=== PATIENT | female | born 1985 | race American Indian/Alaskan Native ===

== ENCOUNTER 2017-05-08 16:40 | Emergency (ER) | payer MEDICAID ==
--- NOTE | 2017-05-08 21:47 | Emergency Department Report ---
ED Abdominal Pain HPI - General Chief Complaint: Abdominal Pain Stated Complaint: ABDOMINAL PAIN Time Seen by Provider: 05/08/17 21:15 Source: patient Mode of arrival: Ambulatory Limitations: No Limitations - History of Present Illness Initial Comments: 31 yo female who comes in today due to abdominal pain times the last two days. She describes the pain as suprapubic, 6/10, and she also has an incomplete feeling of voiding. The patient has a hx of asthma, and is complain of some chest congestion, tightness, and cough. Vitals unremarkable. Onset/Timin -: days(s) Location: suprapubic Radiation: none Migration to: no migration Severity: moderate Severity scale (0 -10): 5 Quality: cramping, aching Consistency: constant Improves With: nothing Worsens With: other (urination ) Associated Symptoms: denies other symptoms Treatments Prior to Arrival: other (none) - Related Data LMP (females 10-50): last week Previous Rx's Medication Instructions Recorded Last Taken Type Diphenoxylate HCl/Atropine 1 each PO QID PRN #10 tablet 05/07/15 Unknown Rx [Lomotil 2.5-0.025 mg Tablet] Ondansetron [Zofran Odt] 4 mg PO Q8HR #20 tab.rapdis 05/07/15 Unknown Rx Ciprofloxacin HCl [Cipro] 500 mg PO BID #20 tablet 05/09/17 Unknown Rx Allergies Allergy/AdvReac Type Severity Reaction Status Date / Time No Known Allergies Allergy Verified 05/07/15 00:27 ED Review of Systems ROS: Stated complaint: ABDOMINAL PAIN Other details as noted in HPI Constitutional: denies: chills, fever Eyes: denies: eye pain, eye discharge, vision change ENT: denies: ear pain, throat pain Respiratory: shortness of breath, other (chest tightness, cough, congestion ) Cardiovascular: denies: chest pain, palpitations Endocrine: no symptoms reported Genitourinary: as per HPI, urgency Musculoskeletal: back pain (chronic ) Skin: denies: rash, lesions Neurological: denies: headache, weakness, paresthesias Psychiatric: denies: anxiety, depression Hematological/Lymphatic: denies: easy bleeding, easy bruising ED Past Medical Hx - Past Medical History Previous Medical History?: Yes Hx Psychiatric Treatment: Yes (Anxiety) Hx Asthma: Yes Additional medical history: Back pain - Surgical History Past Surgical History?: No - Social History Smoking Status: Former Smoker Substance Use Type: Alcohol, Prescribed - Medications Home Medications: Home Medications Medication Instructions Recorded Confirmed Last Taken Type Diphenoxylate HCl/Atropine 1 each PO QID PRN #10 tablet 05/07/15 Unknown Rx [Lomotil 2.5-0.025 mg Tablet] Ondansetron [Zofran Odt] 4 mg PO Q8HR #20 tab.rapdis 05/07/15 Unknown Rx Ciprofloxacin HCl [Cipro] 500 mg PO BID #20 tablet 05/09/17 Unknown Rx ED Physical Exam - General Limitations: No Limitations General appearance: alert, in no apparent distress - Head Head exam: Present: atraumatic, normocephalic - Respiratory Respiratory exam: Present: normal lung sounds bilaterally. Absent: respiratory distress - Cardiovascular Cardiovascular Exam: Present: regular rate, normal rhythm. Absent: systolic murmur, diastolic murmur, rubs, gallop - GI/Abdominal GI/Abdominal exam: Present: tenderness (suprapubic area ), normal bowel sounds - Rectal Rectal exam: Present: deferred - Back Exam Back exam: Present: other (lumbosacral tenderness-hx of chronic back pain ) - Neurological Exam Neurological exam: Present: oriented X3 - Psychiatric Psychiatric exam: Present: normal affect, normal mood - Skin Skin exam: Present: warm, dry, intact, normal color. Absent: rash ED Course Vital Signs 05/08/17 05/08/17 05/08/17 18:09 21:58 22:17 Temperature 98.7 F 98.5 F Pulse Rate 84 78 Pulse Rate [ 77 Anterior Bilateral Throughout] Respiratory 18 16 Rate Respiratory 17 Rate [Anterior Bilateral Throughout] Blood Pressure 101/65 Blood Pressure 112/66 [Left] O2 Sat by Pulse 100 99 Oximetry Critical care attestation.: If time is entered above; I have spent that time in minutes in the direct care of this critically ill patient, excluding procedure time. ED Disposition Clinical Impression: UTI (urinary tract infection) Disposition: DC-01 TO HOME OR SELFCARE Is pt being admited?: No Does the pt Need Aspirin: No Condition: Stable Instructions: Abdominal Pain (ED), Urinary Tract Infection in Women (ED) Additional Instructions: Take medicine as prescribed until completed. Prescriptions: Ciprofloxacin HCl [Cipro] 500 mg PO BID #20 tablet Referrals: PRIMARY CARE, [Primary Care Provider] - 3-5 Days Time of Disposition: 00:31
[2017-05-08] MEDS ORDERED: DUONEB *Not for PRN Use IH ONE (21:52)
[2017-05-08 21:59] VITALS: BP 112/66
[2017-05-09 00:12] LABS: Bacteria,Urine 4+ /HPF (Negative); Bilirubin,Urine NEG (Negative); Blood,Urine SM (Negative); Ketones,Urine NEG (Negative); Leukocyte Esterase,Urine LG (Negative); Mucus,Urine FEW /HPF; Nitrite,Urine POS (Negative)
[2017-05-09 00:19] LABS: WBC,Urine > 182.0 /HPF (0.0-6.0)
[2017-05-09] MEDS ORDERED: ROCEPHIN IM ONE (00:24)
[2017-05-09] MEDS ORDERED: XYLOCAINE 1% MPF 5 mL INFILTRATI ONE (00:24)
[2017-05-09] MEDS ORDERED: TORADOL IM ONE (00:25)
[2017-05-09] MEDS ORDERED: TORADOL ONE (00:28)
[2017-05-09] MEDS ORDERED: ROCEPHIN ONE (00:28)
[2017-05-09] MEDS ORDERED: XYLOCAINE 1% MPF 5 mL ONE (00:28)
[2017-05-09] MEDS ORDERED: PEPCID PO ONE (01:58)
[2017-05-09] MEDS ORDERED: BENADRYL IM ONE (01:58)
[2017-05-09] MEDS ORDERED: BENADRYL PO ONE ×2 (02:44→02:45)
[2017-05-09] MEDS ORDERED: BENADRYL ONE ×2 (02:51→02:52)
[2017-05-09] MEDS ORDERED: PEPCID ONE (02:52)
== END 2017-05-09 04:05 | disposition home or self-care (01) ==
LOC: ED 16:40
DX: N39.0 Urinary tract infection, site not specified (principal); J45.909 Unspecified asthma, uncomplicated
CPT/HCPCS: 81001; 81025; 94640; 96372; 99283; J0696; J1885

== ENCOUNTER 2017-05-18 07:34 | Outpatient (CLI) | payer MEDICAID ==
--- NOTE | 2017-05-18 10:28 | Magnetic Resonance Report ---
MRI LUMBAR SPINE WITHOUT CONTRAST INDICATION: Radiculopathy, lumbosacral region. COMPARISON: None similar at this institution. FINDINGS: Noncontrast axial and sagittal T1 and T2-weighted MRI of the lumbar spine demonstrates normal vertebral body stature, alignment and marrow signal. Normal disc heights and signal as well. No significant disc bulge or spinal stenosis. Normal conus medullaris. Normal paraspinal soft tissues. CONCLUSION: Unremarkable lumbar spine MRI, as described. Thank you for the opportunity to participate in this patient's care.
== END 2017-05-18 07:35 | disposition home or self-care (01) ==
LOC: MRI 07:34
PROVIDERS: ATTEND Emergency Medicine
DX: M54.17 Radiculopathy, lumbosacral region (principal)
CPT/HCPCS: 72148

== ENCOUNTER 2018-04-19 22:53 | Emergency (ER) | payer MEDICAID ==
[2018-04-20] MEDS ORDERED: MOTRIN PO ONE (00:35)
--- NOTE | 2018-04-20 01:12 | XRay Report ---
FINAL REPORT PROCEDURE: XR HAND 2V LT TECHNIQUE: LEFT hand radiographs, AP and lateral views. CPT 53107-WT HISTORY: left thumb pain COMPARISON: No prior studies are available for comparison. FINDINGS: Fracture (s) and/or Dislocation(s): None . Alignment: Normal . Joint space(s): Normal . Soft tissues: Normal . Bone mineralization: Normal . Foreign bodies: None . IMPRESSION: Normal Examination .
[2018-04-20 01:13] LABS: Bacteria,Urine 1+ /HPF (Negative); Bilirubin,Urine NEG (Negative); Blood,Urine NEG (Negative); Color,Urine Yellow (Yellow); Mucus,Urine FEW /HPF
[2018-04-20 01:17] LABS: HCG Qualitative,Urine Negative (Negative)
--- NOTE | 2018-04-20 01:33 | Emergency Department Report ---
ED Upper Extremity Inj HPI - General Chief Complaint: Extremity Injury, Upper Stated Complaint: LT THUMB PAIN Time Seen by Provider: 04/20/18 01:05 Source: patient Mode of arrival: Ambulatory Limitations: No Limitations - History of Present Illness Initial Comments: This is a 32-year-old female nontoxic, well nourished in appearance, no acute signs of distress presents to the ED with c/o of left thumb pain 2 days. She also is complaining about dark colored urine with foul odor. Patient denies any vaginal discharge or vaginal bleeding. Patient denies any other urinary symptoms. Patient states she does have slight dysuria. She denies any back pain. Patient stated that 2 days ago she jammed her left thumb. Patient denies any other trauma. Patient denies any numbness, tingling, fever, chills, nausea, vomiting, chest pain, shortness of breath, headache, stiff neck. Patient denies any joint swelling or joint redness. Patient staetd She has some decreased range of motion due to pain. Patient denies any allergies or significant past medical history. MD Complaint: Injury to:: left, finger -: days(s) (2) Other Extremity Injury: Fingers: Left Other Injuries: none Severity scale (0 -10): 8 Improves With: immobilization Worsens With: movement of extremity Context: crush Associated Symptoms: denies other symptoms. denies: weakness, numbness, neck pain, suspects foreign body, nausea/vomiting, heard/felt popping sensat - Related Data Previous Rx's Medication Instructions Recorded Last Taken Type Diphenoxylate HCl/Atropine 1 each PO QID PRN #10 tablet 05/07/15 Unknown Rx [Lomotil 2.5-0.025 mg Tablet] Ondansetron [Zofran Odt] 4 mg PO Q8HR #20 tab.rapdis 05/07/15 Unknown Rx Ciprofloxacin HCl [Cipro] 500 mg PO BID #20 tablet 05/09/17 Unknown Rx Ibuprofen [Motrin] 600 mg PO Q8H PRN #20 tablet 04/20/18 Unknown Rx Sulfamethoxazole/Trimethoprim 1 each PO BID #14 tablet 04/20/18 Unknown Rx [Bactrim DS TAB] Allergies Allergy/AdvReac Type Severity Reaction Status Date / Time No Known Allergies Allergy Verified 05/07/15 00:27 ED Review of Systems ROS: Stated complaint: LT THUMB PAIN Other details as noted in HPI Constitutional: denies: chills, fever Eyes: denies: eye pain, eye discharge, vision change ENT: denies: ear pain, throat pain Respiratory: denies: cough, shortness of breath, wheezing Cardiovascular: denies: chest pain, palpitations Endocrine: no symptoms reported Gastrointestinal: denies: abdominal pain, nausea, diarrhea Genitourinary: dysuria. denies: urgency, discharge Musculoskeletal: denies: back pain, joint swelling, arthralgia Skin: denies: rash, lesions Neurological: denies: headache, weakness, paresthesias Psychiatric: denies: anxiety, depression Hematological/Lymphatic: denies: easy bleeding, easy bruising ED Past Medical Hx - Past Medical History Hx Psychiatric Treatment: Yes (Anxiety) Hx Asthma: Yes Additional medical history: Back pain - Surgical History Additional Surgical History: Bilateral Breast Reduction - Social History Smoking Status: Never Smoker Substance Use Type: None - Medications Home Medications: Home Medications Medication Instructions Recorded Confirmed Last Taken Type Diphenoxylate HCl/Atropine 1 each PO QID PRN #10 tablet 05/07/15 Unknown Rx [Lomotil 2.5-0.025 mg Tablet] Ondansetron [Zofran Odt] 4 mg PO Q8HR #20 tab.rapdis 05/07/15 Unknown Rx Ciprofloxacin HCl [Cipro] 500 mg PO BID #20 tablet 05/09/17 Unknown Rx Ibuprofen [Motrin] 600 mg PO Q8H PRN #20 tablet 04/20/18 Unknown Rx Sulfamethoxazole/Trimethoprim 1 each PO BID #14 tablet 04/20/18 Unknown Rx [Bactrim DS TAB] ED Physical Exam - General Limitations: No Limitations General appearance: alert, in no apparent distress - Head Head exam: Present: atraumatic, normocephalic - Eye Eye exam: Present: normal appearance Pupils: Present: normal accommodation - ENT ENT exam: Present: normal exam, mucous membranes moist - Neck Neck exam: Present: normal inspection - Respiratory Respiratory exam: Present: normal lung sounds bilaterally. Absent: respiratory distress, wheezes, rales, rhonchi, stridor, chest wall tenderness, accessory muscle use, decreased breath sounds, prolonged expiratory - Cardiovascular Cardiovascular Exam: Present: regular rate, normal rhythm, normal heart sounds. Absent: systolic murmur, diastolic murmur, rubs, gallop - GI/Abdominal GI/Abdominal exam: Present: soft, normal bowel sounds - Extremities Exam Extremities exam: Present: normal inspection, full ROM, tenderness, normal capillary refill. Absent: joint swelling - Expanded Upper Extremity Exam Left Hand Wrist exam: Present: normal inspection, full ROM, tenderness. Absent: swelling, abrasion, laceration, ecchymosis, deformity, crepidus, dislocation, erythema, amputation, nail avulsion, subungual hematoma Hand L/R Back: 1 - pain here Neuro motor exam: Present: wrist extension intact, thumb opposition intact, thumb IP flexion intact, thumb adduction intact, fingers 2-5 abduction intact Neurosensory exam: Present: 2-point discrimination, radial nerve intact, ulnar nerve intact, median nerve intact Vascular: Present: vascular compromise, normal capillary refill - Back Exam Back exam: Present: normal inspection, full ROM. Absent: tenderness, CVA tenderness (R), CVA tenderness (L), muscle spasm, paraspinal tenderness, vertebral tenderness, rash noted - Neurological Exam Neurological exam: Present: alert, oriented X3, normal gait - Psychiatric Psychiatric exam: Present: normal affect, normal mood - Skin Skin exam: Present: warm, dry, intact, normal color. Absent: rash ED Course Vital Signs 04/19/18 23:56 Temperature 99.4 F Pulse Rate 69 Respiratory 16 Rate Blood Pressure 133/77 O2 Sat by Pulse 99 Oximetry - Reevaluation(s) Reevaluation #1: 04/20/18 01:34 Patient is speaking in full sentences with no signs of distress noted. ED Medical Decision Making - Medical Decision Making This is a 32-year-old female that presents with left thumb strain and UTI. Patient is stable and was examined by me. Neurovascular intact. X-ray has been obtained and dictated by the radiologist. Patient is notified of the x- ray report with noted by the patient. Patient does have normal gait with no tenderness and no joint swelling. No ecchymosis. no joint redness or swelling. Not warm to touch. No signs of cellulites present. Patient was instructed to RICE therapy. Patient is discharged with Motrin. At time of discharge, the patient does not seem toxic or ill in appearance. No acute signs of distress noted. Patient agrees to discharge treatment plan of care. No further questions noted by the patient. Critical care attestation.: If time is entered above; I have spent that time in minutes in the direct care of this critically ill patient, excluding procedure time. ED Disposition Clinical Impression: Strain of left thumb UTI (urinary tract infection) Qualifiers: Urinary tract infection type: site unspecified Hematuria presence: without hematuria Qualified Code(s): N39.0 - Urinary tract infection, site not specified Disposition: DC- TO HOME OR SELFCARE Is pt being admited?: No Does the pt Need Aspirin: No Condition: Stable Additional Instructions: Follow-up with a primary care/orthopedic doctor in 3-5 days or if symptoms worsen and continue return to emergency room as soon as possible. Prescriptions: Ibuprofen [Motrin] 600 mg PO Q8H PRN #20 tablet PRN Reason: Pain Sulfamethoxazole/Trimethoprim [Bactrim DS TAB] 1 each PO BID #14 tablet Referrals: PEDRO MCDONNELL MD [Primary Care Provider] - 3-5 Days NABILA VEE MD [Staff Physician] - 3-5 Days ABDIRIZAK GALVIN MD [Staff Physician] - 3-5 Days [facility] [Outside] - 3-5 Days
[2018-04-20 08:48] VITALS: BP 125/76
== END 2018-04-20 01:43 | disposition home or self-care (01) ==
LOC: ED 22:53
DX: S56.312A Strain of extensor or abductor muscles, fascia and tendons of left thumb at forearm level, initial encounter (principal); N39.0 Urinary tract infection, site not specified; J45.909 Unspecified asthma, uncomplicated; W23.0XXA Caught, crushed, jammed, or pinched between moving objects, initial encounter; Y93.89 Activity, other specified; Y92.89 Other specified places as the place of occurrence of the external cause; Y99.8 Other external cause status
CPT/HCPCS: 81001; 81025; 99283

== ENCOUNTER 2018-10-12 23:30 | Emergency (ER) | payer MEDICAID ==
[2018-10-13 01:00] LABS: Basophils % (Auto) 0.2 % (0.0-1.8); Eosinophils # (Auto) 0.1 K/mm3 (0.0-0.4); Eosinophils % (Auto) 0.9 % (0.0-4.3); Hematocrit 34.5 % (30.3-42.9); Hemoglobin 11.7 gm/dl (10.1-14.3); Lymphocytes # (Auto) 1.4 K/mm3 (1.2-5.4); Lymphocytes % (Auto) 16.5 % (13.4-35.0); Mean Corpuscular HGB Conc 34 % (30-34); Monocytes # (Auto) 0.3 K/mm3 (0.0-0.8); Monocytes % (Auto) 3.7 % (0.0-7.3); Platelet Count 306 K/mm3 (140-440); Red Blood Count 5.01 M/mm3 (3.65-5.03); Red Cell Distribution Width 14.3 % (13.2-15.2)
[2018-10-13 01:13] LABS: Bilirubin,Urine NEG (Negative); Blood,Urine NEG (Negative); Color,Urine Yellow (Yellow); Mucus,Urine FEW /HPF; Protein,Urine <15 mg/dL mg/dL (Negative)
[2018-10-13 01:20] LABS: BUN/Creatinine Ratio 14; Blood Urea Nitrogen 10 mg/dL (7-17); Calcium 8.4 mg/dL (8.4-10.2); Hemolysis Index 18; Mean Corpuscular Volume 69 fl (79-97)
--- NOTE | 2018-10-13 01:21 | Emergency Department Report ---
ED Female HPI - General Chief complaint: Urogenital-Female Stated complaint: VOMITING/THINK I HAVE UTI Time Seen by Provider: 10/13/18 00:58 Source: patient Mode of arrival: Ambulatory Limitations: No Limitations - History of Present Illness Initial comments: 32-year-old -[place] female presents to the emergency room stating nausea vomiting and abdominal pain with urine odor 2 days. Patient denies any vaginal bleeding denies any vaginal discharge denies any blood in urine. Patient does admit to vomiting diarrhea and body aches and abdominal pain located in the lower thighs had a cramping in nature. Patient reports a past medical history of asthma pain is worse with sitting up. -: days(s) (1) Quality: cramping Consistency: intermittent Improves with: none Worsens with: other (sitting up) Are you Now?: No Associated Symptoms: nausea/vomiting, other (area). denies: vaginal discharge, vaginal bleeding - Related Data Previous Rx's Medication Instructions Recorded Last Taken Type Diphenoxylate HCl/Atropine 1 each PO QID PRN #10 tablet 05/07/15 Unknown Rx [Lomotil 2.5-0.025 mg Tablet] Ondansetron [Zofran Odt] 4 mg PO Q8HR #20 tab.rapdis 05/07/15 Unknown Rx Ibuprofen [Motrin] 600 mg PO Q8H PRN #20 tablet 04/20/18 Unknown Rx Sulfamethoxazole/Trimethoprim 1 each PO BID #14 tablet 04/20/18 Unknown Rx [Bactrim DS TAB] Ciprofloxacin HCl [Cipro] 500 mg PO BID #14 tablet 10/13/18 Unknown Rx Hyoscyamine Subl [Levsin Sl 0.125 0.125 mg SL Q6HR PRN #12 tab 10/13/18 Unknown Rx TAB] metroNIDAZOLE [Metronidazole] 500 mg PO BID #14 tablet 10/13/18 Unknown Rx Allergies Allergy/AdvReac Type Severity Reaction Status Date / Time No Known Allergies Allergy Verified 05/07/15 00:27 ED Review of Systems ROS: Stated complaint: VOMITING/THINK I HAVE UTI Other details as noted in HPI Comment: All other systems reviewed and negative Gastrointestinal: abdominal pain, nausea, vomiting ED Past Medical Hx - Past Medical History Hx Psychiatric Treatment: Yes (Anxiety) Hx Asthma: Yes Additional medical history: Back pain - Surgical History Additional Surgical History: Bilateral Breast Reduction - Social History Smoking Status: Never Smoker Substance Use Type: None - Medications Home Medications: Home Medications Medication Instructions Recorded Confirmed Last Taken Type Diphenoxylate HCl/Atropine 1 each PO QID PRN #10 tablet 05/07/15 Unknown Rx [Lomotil 2.5-0.025 mg Tablet] Ondansetron [Zofran Odt] 4 mg PO Q8HR #20 tab.rapdis 05/07/15 Unknown Rx Ibuprofen [Motrin] 600 mg PO Q8H PRN #20 tablet 04/20/18 Unknown Rx Sulfamethoxazole/Trimethoprim 1 each PO BID #14 tablet 04/20/18 Unknown Rx [Bactrim DS TAB] Ciprofloxacin HCl [Cipro] 500 mg PO BID #14 tablet 10/13/18 Unknown Rx Hyoscyamine Subl [Levsin Sl 0.125 0.125 mg SL Q6HR PRN #12 tab 10/13/18 Unknown Rx TAB] metroNIDAZOLE [Metronidazole] 500 mg PO BID #14 tablet 10/13/18 Unknown Rx ED Physical Exam - General Limitations: No Limitations General appearance: alert, in no apparent distress - Head Head exam: Present: atraumatic, normocephalic - Eye Eye exam: Present: EOMI - ENT ENT exam: Present: mucous membranes moist - Neck Neck exam: Present: normal inspection - Respiratory Respiratory exam: Present: normal lung sounds bilaterally. Absent: respiratory distress - Cardiovascular Cardiovascular Exam: Present: regular rate, normal rhythm. Absent: systolic murmur, diastolic murmur, rubs, gallop - GI/Abdominal GI/Abdominal exam: Present: soft, tenderness (left lower quadrant), normal bowel sounds. Absent: distended - Neurological Exam Neurological exam: Present: alert, oriented X3 - Psychiatric Psychiatric exam: Present: normal affect, normal mood - Skin Skin exam: Present: warm, dry, intact, normal color. Absent: rash ED Course Vital Signs 10/13/18 03:17 Temperature 98.8 F Pulse Rate 98 H Respiratory 19 Rate Blood Pressure 107/69 O2 Sat by Pulse 96 Oximetry ED Medical Decision Making - Lab Data Result diagrams: 10/13/18 00:40 10/13/18 00:40 - Medical Decision Making She has been evaluated by this provider a cc. Patient started IV with normal saline and Zofran for nausea. Patient will be given Levsin and Zofran. Critical care attestation.: If time is entered above; I have spent that time in minutes in the direct care of this critically ill patient, excluding procedure time. ED Disposition Clinical Impression: Enteritis Disposition: DC-01 TO HOME OR SELFCARE Is pt being admited?: No Does the pt Need Aspirin: No Condition: Stable Instructions: Infectious Colitis (ED) Additional Instructions: Please take medication as prescribed. Increase her fluid intake advance her diet as tolerated. Prescriptions: Ciprofloxacin HCl [Cipro] 500 mg PO BID #14 tablet Hyoscyamine Subl [Levsin Sl 0.125 TAB] 0.125 mg SL Q6HR PRN #12 tab PRN Reason: Nausea And Vomiting metroNIDAZOLE [Metronidazole] 500 mg PO BID #14 tablet Referrals: VERENA SIMEON MD [Primary Care Provider] - 3-5 Days Forms: Work/School Release Form(ED), Accompanied Note
[2018-10-13 01:26] LABS: HCG Qualitative,Urine Negative (Negative)
[2018-10-13] MEDS ORDERED: NACL 0.9% 1000 ML 1,000 ML IV ONE (02:49)
[2018-10-13] MEDS ORDERED: ZOFRAN IV ONE ×2 (02:49→04:54)
[2018-10-13] MEDS ORDERED: LEVSIN SL SL ONE (02:49)
[2018-10-13] MEDS ORDERED: MORPHINE IV ONE (04:54)
--- NOTE | 2018-10-13 05:46 | Cat Scan Report ---
PROCEDURE: CT ABDOMEN PELVIS W CON TECHNIQUE: Routine axial imaging was obtained of the abdomen and pelvis following the intravenous in jection of iodinated contrast. Delayed imaging was obtained of the kidneys ureters and bladder. Sagit estephania and coronal reconstructions were reviewed. HISTORY: lower quad pain COMPARISONS: None FINDINGS: The lung bases are clear. Pleural fluid is not seen. The liver, gallbladder, biliary tree, pancreas, spleen, and adrenal glands appear normal. The kidneys enhance normally. There is no evidence of hydronephrosis. The abdominal aorta is normal in caliber. The portal vein enhances normally. The bowel loops reveal multiple nondistended fluid-filled loops of ileum in the pelvis without transi tion point. The colon is normal in caliber. The appendix is not enlarged. In the pelvis there is a small amount of free fluid in the cul-de-sac. The uterus and bladder appear normal. The surrounding bones and soft tissues otherwise do not show any acute changes. IMPRESSION: Multiple nondistended fluid-filled loops of ileum in the pelvis without transition point. A mild ente ritis cannot be excluded. Small amount of free fluid in the cul-de-sac. This document is electronically signed by Jameel Pandey MD., October 13 2018 05:43:57 AM ET
[2018-10-13 07:04] VITALS: BP 110/65
== END 2018-10-13 07:01 | disposition home or self-care (01) ==
LOC: ED 23:30
DX: K52.9 Noninfective gastroenteritis and colitis, unspecified (principal); R11.2 Nausea with vomiting, unspecified; J45.909 Unspecified asthma, uncomplicated
CPT/HCPCS: 36415; 74177; 80048; 81001; 81025; 85025; 96361; 96374; 96375; 96376; 99284; J2270; J2405; J7030; Q9967

== ENCOUNTER 2019-07-20 00:19 | Emergency (ER) | payer MEDICAID ==
[2019-07-20 01:19] LABS: Bilirubin,Urine NEG (Negative); Blood,Urine NEG (Negative); Color,Urine Yellow (Yellow); Mucus,Urine FEW /HPF; Protein,Urine <15 mg/dL mg/dL (Negative); Urobilinogen,Urine < 2.0 mg/dL (<2.0)
--- NOTE | 2019-07-20 01:55 | Emergency Department Report ---
<TK LARIOS - Last Filed: 07/20/19 01:53> ED Female HPI - General Chief complaint: Abdominal Pain Stated complaint: POSS UTI/PAIN Time Seen by Provider: 07/20/19 00:51 Source: patient Mode of arrival: Ambulatory Limitations: No Limitations - History of Present Illness Initial comments: Patient is a 33-year-old female who is complaining of urinary frequency and lower back and suprapubic pain for the past 3 days. Patient denies nausea vomiting fevers or chills. She states that urine is foul-smelling. Severity: moderate Severity scale (0 -10): 5 Quality: aching Consistency: constant Improves with: none Worsens with: urination Associated Symptoms: abdominal pain. denies: vaginal discharge, vaginal bleeding, nausea/vomiting, fever/chills, headaches, loss of appetite, dysuria, hematuria, seizure, shortness of breath, syncope - Related Data Previous Rx's Medication Instructions Recorded Last Taken Type Diphenoxylate HCl/Atropine 1 each PO QID PRN #10 tablet 05/07/15 Unknown Rx [Lomotil 2.5-0.025 mg Tablet] Ondansetron [Zofran Odt] 4 mg PO Q8HR #20 tab.rapdis 05/07/15 Unknown Rx Sulfamethoxazole/Trimethoprim 1 each PO BID #14 tablet 04/20/18 Unknown Rx [Bactrim DS TAB] Ciprofloxacin HCl [Cipro] 500 mg PO BID #14 tablet 10/13/18 Unknown Rx Hyoscyamine Subl [Levsin Sl 0.125 0.125 mg SL Q6HR PRN #12 tab 10/13/18 Unknown Rx TAB] metroNIDAZOLE [Metronidazole] 500 mg PO BID #14 tablet 10/13/18 Unknown Rx Ibuprofen [Motrin 600 MG tab] 600 mg PO Q8H PRN #20 tablet 07/20/19 Unknown Rx Allergies Allergy/AdvReac Type Severity Reaction Status Date / Time No Known Allergies Allergy Verified 05/07/15 00:27 ED Review of Systems Comment: All other systems reviewed and negative ED Past Medical Hx - Past Medical History Previous Medical History?: Yes Hx Psychiatric Treatment: Yes (Anxiety) Hx Asthma: Yes Additional medical history: Back pain - Surgical History Past Surgical History?: Yes Additional Surgical History: Bilateral Breast Reduction - Social History Smoking Status: Never Smoker Substance Use Type: None - Medications Home Medications: Home Medications Medication Instructions Recorded Confirmed Last Taken Type Diphenoxylate HCl/Atropine 1 each PO QID PRN #10 tablet 05/07/15 Unknown Rx [Lomotil 2.5-0.025 mg Tablet] Ondansetron [Zofran Odt] 4 mg PO Q8HR #20 tab.rapdis 05/07/15 Unknown Rx Sulfamethoxazole/Trimethoprim 1 each PO BID #14 tablet 04/20/18 Unknown Rx [Bactrim DS TAB] Ciprofloxacin HCl [Cipro] 500 mg PO BID #14 tablet 10/13/18 Unknown Rx Hyoscyamine Subl [Levsin Sl 0.125 0.125 mg SL Q6HR PRN #12 tab 10/13/18 Unknown Rx TAB] metroNIDAZOLE [Metronidazole] 500 mg PO BID #14 tablet 10/13/18 Unknown Rx Ibuprofen [Motrin 600 MG tab] 600 mg PO Q8H PRN #20 tablet 07/20/19 Unknown Rx ED Physical Exam - General Limitations: No Limitations General appearance: alert, in no apparent distress - Head Head exam: Present: atraumatic, normocephalic - Eye Eye exam: Present: normal appearance - ENT ENT exam: Present: mucous membranes moist - Neck Neck exam: Present: normal inspection - Respiratory Respiratory exam: Present: normal lung sounds bilaterally. Absent: respiratory distress, wheezes, rales - Cardiovascular Cardiovascular Exam: Present: regular rate, normal rhythm, normal heart sounds. Absent: systolic murmur, diastolic murmur, rubs, gallop - GI/Abdominal GI/Abdominal exam: Present: soft, tenderness (suprapubic), normal bowel sounds. Absent: distended, guarding, rebound, rigid - Extremities Exam Extremities exam: Present: normal inspection - Back Exam Back exam: Present: normal inspection. Absent: CVA tenderness (R), CVA tenderness (L) - Neurological Exam Neurological exam: Present: alert, oriented X3 - Psychiatric Psychiatric exam: Present: normal affect, normal mood - Skin Skin exam: Present: warm, dry, intact, normal color. Absent: rash ED Disposition Clinical Impression: Pelvic pain Disposition: DC- TO HOME OR SELFCARE Condition: Stable Instructions: Abdominal Pain (ED) Additional Instructions: Ultrasound is negative for any acute findings. Urinalysis is negative for any infection negative test negative wet prep. Gonorrhea and chlamydia test has been sent to the lab results to be back in 5-7 days bring your picture ID to medical records to obtain the results. Follow-up with a CLINICAL SAFETY SPECIALIST. Prescriptions: Ibuprofen [Motrin 600 MG tab] 600 mg PO Q8H PRN #20 tablet PRN Reason: Pain Referrals: VERENA SIMEON MD [Primary Care Provider] - 3-5 Days [facility] [Provider Group] - 3-5 Days [facility] [Provider Group] - 3-5 Days Forms: Work/School Release Form(ED) <JORGE MORILLO - Last Filed: 07/20/19 04:47> ED Female HPI - History of Present Illness Initial comments: Patient reports pelvic pain is constant and feels like shooting pain. Patient reports that when she takes ibuprofen it helps but does come back. Patient denies any unprotected intercourse. Onset/Timin -: days(s) Location: suprapubic Are you Now?: No Last Menstrual Period: 07/16/19 EDC: 04/21/20 - Related Data Sexually active: Yes (protected) ED Review of Systems ROS: Stated complaint: POSS UTI/PAIN Other details as noted in HPI ED Physical Exam - GI/Abdominal GI/Abdominal exam: Present: tenderness - External exam: Present: normal external exam Speculum exam: Present: cervical discharge Bi-manual exam: Present: normal bi-manual exam ED Course Vital Signs 07/20/19 00:23 Temperature 97.8 F Pulse Rate 81 Respiratory 18 Rate Blood Pressure 108/69 [Right] O2 Sat by Pulse 99 Oximetry ED Medical Decision Making - Lab Data Laboratory Last Values Urine Color Yellow (Yellow) 07/20/19 Unknown Urine Turbidity Clear (Clear) 07/20/19 Unknown Urine pH 5.0 (5.0-7.0) 07/20/19 Unknown Ur Specific [place] 1.031 (1.003-1.030) H 07/20/19 Unknown Urine Protein <15 mg/dl mg/dL (Negative) 07/20/19 Unknown Urine Glucose (UA) Neg mg/dL (Negative) 07/20/19 Unknown Urine Ketones Neg mg/dL (Negative) 07/20/19 Unknown Urine Blood Neg (Negative) 07/20/19 Unknown Urine Nitrite Neg (Negative) 07/20/19 Unknown Urine Bilirubin Neg (Negative) 07/20/19 Unknown Urine Urobilinogen < 2.0 mg/dL (<2.0) 07/20/19 Unknown Ur Leukocyte Esterase Neg (Negative) 07/20/19 Unknown Urine WBC (Auto) 2.0 /HPF (0.0-6.0) 07/20/19 Unknown Urine RBC (Auto) 1.0 /HPF (0.0-6.0) 07/20/19 Unknown U Epithel Cells (Auto) 4.0 /HPF (0-13.0) 07/20/19 Unknown Urine Mucus Few /HPF 07/20/19 Unknown Urine HCG, Qual Negative (Negative) 07/20/19 Unknown - Radiology Data Radiology results: report reviewed Patient: NOMI PATE MR#: [id number] : 1985 Acct:[id number] Age/Sex: 33 / F ADM Date: 07/20/19 Loc: ED Attending Dr: Ordering Physician: MARÍA SOTO Date of Service: 07/20/19 Procedure(s): US pelvic complete Accession Number(s): [id number] cc: MARÍA SOTO US pelvic complete, US transvaginal INDICATION / CLINICAL INFORMATION: constant pelvic pain. COMPARISON: None available. FINDINGS: Transabdominal and transvaginal imaging was performed. Uterus measures 10.0 x 5.3 x 6.0 cm. Endometrial echo complex is at the upper limits of normal measuring 15 mm. No endometrial fluid collections are seen. No uterine lesions are seen. Right and left ovaries are unremarkable. No adnexal lesions are seen. There is trace free fluid in the pelvis. IMPRESSION: 1. No significant abnormality. Endometrial echo complex is at the upper limits of normal, correlate with menstrual cycle. Signer Name: Jaspal Yao MD Signed: 07/20/2019 4:00 AM Workstation Name: [id number] Transcribed By: MAGDA Dictated By: Jaspal Yao MD Electronically Authenticated By: Jaspal Yao MD Signed Date/Time: 07/20/19 0400 - Medical Decision Making 33-year-old -Citizen Of [place] female presents to the emergency room for flank pain and foul-smelling urine 3 days. Patient does admit to mild vaginal discharge. Patient denies any unprotected intercourse. Patient denies any nausea vomiting. Patient reports her last menstrual period was 07/16/2019. Critical care attestation.: If time is entered above; I have spent that time in minutes in the direct care of this critically ill patient, excluding procedure time. ED Disposition Is pt being admited?: No Does the pt Need Aspirin: No
[2019-07-20 01:56] LABS: HCG Qualitative,Urine Negative (Negative)
[2019-07-20] MEDS ORDERED: IBUPROFEN 600 MG TAB PO ONE (02:56)
--- NOTE | 2019-07-20 04:05 | Ultrasound Report ---
US pelvic complete, US transvaginal INDICATION / CLINICAL INFORMATION: constant pelvic pain. COMPARISON: None available. FINDINGS: Transabdominal and transvaginal imaging was performed. Uterus measures 10.0 x 5.3 x 6.0 cm. Endometrial echo complex is at the upper limits of normal measur ing 15 mm. No endometrial fluid collections are seen. No uterine lesions are seen. Right and left ovaries are unremarkable. No adnexal lesions are seen. There is trace free fluid in th e pelvis. IMPRESSION: 1. No significant abnormality. Endometrial echo complex is at the upper limits of normal, correlate w ith menstrual cycle. Signer Name: Jaspal Yao MD Signed: 07/20/2019 4:00 AM Workstation Name: [id number]
[2019-07-20 05:10] VITALS: BP 100/53
== END 2019-07-20 05:09 | disposition home or self-care (01) ==
LOC: ED 00:19
DX: R10.2 Pelvic and perineal pain (principal); F41.9 Anxiety disorder, unspecified; Z79.899 Other long term (current) drug therapy
CPT/HCPCS: 76830; 76856; 81001; 81025; 87210; 87591

== ENCOUNTER 2019-12-07 01:15 | Emergency (ER) | payer MEDICAID ==
[2019-12-07] MEDS ORDERED: ONDANSETRON 4 MG ODT TAB PO ONE (03:26)
[2019-12-07] MEDS ORDERED: SULFAMETHOXAZOLE/TRIMETHOPRIM 800/160MG DS TAB PO ONE (03:26)
[2019-12-07] MEDS ORDERED: CLINDAMYCIN 300 MG CAP PO ONE (03:26)
[2019-12-07] MEDS ORDERED: IBUPROFEN 600 MG TAB PO ONE (03:27)
[2019-12-07] MEDS ORDERED: ACETAMINOPHEN 500 MG TAB PO ONE (03:30)
--- NOTE | 2019-12-07 03:55 | Emergency Department Report ---
ED General Adult HPI - General Chief complaint: Skin/Abscess/Foreign Body Stated complaint: BOIL Source: patient Mode of arrival: Ambulatory Limitations: No Limitations - History of Present Illness Initial comments: Patient is a 34-year-old -[place] female with no past medical history who presents to the ED with complaint of acute onset painful swelling mild erythematous maculopapular rash with purulent discharge in the left breast areola for the last 12 hours. Patient states that she is s/p post bilateral breast reduction 3 years ago with no complications. Patient states that a lot of purulent discharge drained from the rash 6 hours ago and now the pain is worse. Patient denies fever, chills, nausea, vomiting, dizziness, syncope, chest pain, shortness of breath, headache, abdominal pain, traumatic injury or cough. MD Complaint: Painful left breast rash with discharge -: Sudden, hour(s) (12) Location: chest Radiation: non-radiation Severity scale (0 -10): 8 Quality: aching, sharp Consistency: constant Improves with: none Worsens with: none Associated Symptoms: denies other symptoms, rash (Erythematous maculopapular rash on the left breast). denies: confusion, chest pain, cough, diaphoresis, fever/chills, headaches, loss of appetite, malaise, nausea/vomiting, seizure Treatments Prior to Arrival: none - Related Data Previous Rx's Medication Instructions Recorded Last Taken Type Diphenoxylate HCl/Atropine 1 each PO QID PRN #10 tablet 05/07/15 Unknown Rx [Lomotil 2.5-0.025 mg Tablet] Ondansetron [Zofran Odt] 4 mg PO Q8HR #20 tab.rapdis 05/07/15 Unknown Rx Ciprofloxacin HCl [Cipro] 500 mg PO BID #14 tablet 10/13/18 Unknown Rx Hyoscyamine Subl [Levsin Sl 0.125 0.125 mg SL Q6HR PRN #12 tab 10/13/18 Unknown Rx TAB] metroNIDAZOLE [Metronidazole] 500 mg PO BID #14 tablet 10/13/18 Unknown Rx Ibuprofen [Motrin 600 MG tab] 600 mg PO Q8H PRN #20 tablet 07/20/19 Unknown Rx Acetaminophen/Codeine [Tylenol 1 tab PO Q6H PRN #12 tab 12/07/19 Unknown Rx /Codeine # 3 tab] Clindamycin [Clindamycin CAP] 300 mg PO Q8HR #60 capsule 12/07/19 Unknown Rx Ibuprofen [Motrin] 800 mg PO Q8HR PRN #30 tablet 12/07/19 Unknown Rx Sulfamethoxazole/Trimethoprim 1 each PO BID #20 tablet 12/07/19 Unknown Rx [Bactrim DS TAB] Allergies Allergy/AdvReac Type Severity Reaction Status Date / Time Penicillins Allergy Swelling Verified 12/07/19 01:34 ED Review of Systems ROS: Stated complaint: BOIL Other details as noted in HPI Constitutional: denies: chills, fever Eyes: denies: eye pain, eye discharge, vision change ENT: denies: ear pain, throat pain Respiratory: denies: cough, shortness of breath, wheezing Cardiovascular: denies: chest pain, palpitations Endocrine: no symptoms reported Gastrointestinal: denies: abdominal pain, nausea, diarrhea Genitourinary: denies: urgency, dysuria, discharge Musculoskeletal: denies: back pain, joint swelling, arthralgia Skin: rash (Mildly erythematous maculopapular painful rash on left breast areola), change in color. denies: lesions Neurological: denies: headache, weakness, paresthesias Psychiatric: denies: anxiety, depression Hematological/Lymphatic: denies: easy bleeding, easy bruising ED Past Medical Hx - Past Medical History Previous Medical History?: Yes Hx Psychiatric Treatment: Yes (Anxiety) Hx Asthma: Yes Additional medical history: Back pain - Surgical History Past Surgical History?: Yes Additional Surgical History: Bilateral Breast Reduction - Social History Smoking Status: Never Smoker Substance Use Type: None - Medications Home Medications: Home Medications Medication Instructions Recorded Confirmed Last Taken Type Diphenoxylate HCl/Atropine 1 each PO QID PRN #10 tablet 05/07/15 Unknown Rx [Lomotil 2.5-0.025 mg Tablet] Ondansetron [Zofran Odt] 4 mg PO Q8HR #20 tab.rapdis 05/07/15 Unknown Rx Ciprofloxacin HCl [Cipro] 500 mg PO BID #14 tablet 10/13/18 Unknown Rx Hyoscyamine Subl [Levsin Sl 0.125 0.125 mg SL Q6HR PRN #12 tab 10/13/18 Unknown Rx TAB] metroNIDAZOLE [Metronidazole] 500 mg PO BID #14 tablet 10/13/18 Unknown Rx Ibuprofen [Motrin 600 MG tab] 600 mg PO Q8H PRN #20 tablet 07/20/19 Unknown Rx Acetaminophen/Codeine [Tylenol 1 tab PO Q6H PRN #12 tab 12/07/19 Unknown Rx /Codeine # 3 tab] Clindamycin [Clindamycin CAP] 300 mg PO Q8HR #60 capsule 12/07/19 Unknown Rx Ibuprofen [Motrin] 800 mg PO Q8HR PRN #30 tablet 12/07/19 Unknown Rx Sulfamethoxazole/Trimethoprim 1 each PO BID #20 tablet 12/07/19 Unknown Rx [Bactrim DS TAB] ED Physical Exam - General Limitations: No Limitations General appearance: alert, in no apparent distress - Head Head exam: Present: atraumatic, normocephalic, normal inspection - Eye Eye exam: Present: normal appearance, PERRL, EOMI Pupils: Present: normal accommodation - ENT ENT exam: Present: normal exam, normal orophraynx, mucous membranes moist, TM's normal bilaterally, normal external ear exam - Neck Neck exam: Present: normal inspection, full ROM - Respiratory Respiratory exam: Present: normal lung sounds bilaterally, other (Palpable left breast tenderness due to mild erythematous maculopapular nonfluctuant rash). Absent: respiratory distress, wheezes, rales, rhonchi, decreased breath sounds, prolonged expiratory - Cardiovascular Cardiovascular Exam: Present: regular rate, normal rhythm, normal heart sounds. Absent: systolic murmur, diastolic murmur, rubs, gallop - GI/Abdominal GI/Abdominal exam: Present: soft, normal bowel sounds. Absent: tenderness, guarding, rebound, hyperactive bowel sounds, hypoactive bowel sounds - Extremities Exam Extremities exam: Present: normal inspection, full ROM, normal capillary refill. Absent: tenderness, pedal edema, joint swelling - Back Exam Back exam: Present: normal inspection, full ROM. Absent: tenderness, CVA tenderness (R), CVA tenderness (L), muscle spasm, paraspinal tenderness, vertebral tenderness - Neurological Exam Neurological exam: Present: alert, oriented X3, CN II-XII intact, normal gait, reflexes normal - Psychiatric Psychiatric exam: Present: normal affect, normal mood - Skin Skin exam: Present: warm, dry, intact, rash (Erythematous maculopapular nonfluctuant rash with palpable tenderness in the left breast areola), erythema ED Course Vital Signs 12/07/19 01:28 Temperature 98.3 F Pulse Rate 81 Respiratory 18 Rate Blood Pressure 108/73 O2 Sat by Pulse 98 Oximetry ED Medical Decision Making - Medical Decision Making This is a 34-year-old -[place] female with no past medical history who presents to the ED with complaint of acute onset painful swelling mild erythematous maculopapular rash with purulent discharge in the left breast areola for the last 12 hours. Patient states that she is s/p post bilateral breast reduction 3 years ago with no complications. Patient states that a lot of purulent discharge drained from the rash 6 hours ago and now the pain is worse. In the ED, patient is alert and oriented x3 and is not in distress. Patient however appears to be in pain but her vital signs are stable. Patient was treated in the ED with pain medications and also started on oral antibiotics. The wound was cleaned with normal saline and Betadine, and dressed appropriately with 4 x 4 gauze. Patient was discharged home on pain medications and antibiotics and was advised to follow-up with her primary care physician in 7 to 10 days for reevaluation or return to the ED immediately if symptoms get worse. - Differential Diagnosis cellulitis; abscess; mastitis; folliculitis; insect bite Critical care attestation.: If time is entered above; I have spent that time in minutes in the direct care of this critically ill patient, excluding procedure time. ED Disposition Clinical Impression: Cellulitis of left breast, Abscess of skin of breast, Acute mastitis of left breast Disposition: DC-01 TO HOME OR SELFCARE Is pt being admited?: No Does the pt Need Aspirin: No Condition: Stable Instructions: Mastitis (ED), Cellulitis (ED), Abscess (ED) Additional Instructions: Take medication with food, drink plenty of fluids and follow-up with your primary care physician in 7 to 10 days for reevaluation. Return to the ED immediately if symptoms get worse. Prescriptions: Sulfamethoxazole/Trimethoprim [Bactrim DS TAB] 1 each PO BID #20 tablet Clindamycin [Clindamycin CAP] 300 mg PO Q8HR #60 capsule Ibuprofen [Motrin] 800 mg PO Q8HR PRN #30 tablet PRN Reason: Pain , Severe (7-10) Acetaminophen/Codeine [Tylenol /Codeine # 3 tab] 1 tab PO Q6H PRN #12 tab PRN Reason: Pain , Severe (7-10) Referrals: [facility] [Provider Group] - 3-5 Days VERENA SIMEON MD [Staff Physician] - 3-5 Days Forms: Work/School Release Form(ED) Time of Disposition: 03:52 Print Language: [place] CITIZ[place]
[2019-12-07 04:13] VITALS: BP 108/73
== END 2019-12-07 04:38 | disposition home or self-care (01) ==
LOC: ED 01:15
DX: N61.1 Abscess of the breast and nipple (principal); F41.9 Anxiety disorder, unspecified; J45.909 Unspecified asthma, uncomplicated; Z98.890 Other specified postprocedural states; Z79.1 Long term (current) use of non-steroidal anti-inflammatories (NSAID); Z79.899 Other long term (current) drug therapy; Z88.0 Allergy status to penicillin
CPT/HCPCS: 99282; Q0162